=== PATIENT | male | born 1970 | race Caucasian/White ===

== ENCOUNTER 2018-03-31 09:39 | Emergency (ER) | payer OTHER ==
[~2018-03-31] VITALS: Ht 165.1 cm; Wt 92.0 kg
[2018-03-31 09:45] VITALS: TEMP 36.6; Ht 165.1 cm; Wt 92.0 kg
[2018-03-31 10:30] LABS: BASO % 0.3 %; BASO ABS # 0.02 K/uL (0-0.2); EOS % 1.3 %; HEMATOCRIT 45.1 % (42-52); HEMOGLOBIN 16.2 g/dL (14.0-18.0); IG# 0.01 K/uL (0.00-0.02); LYMPH % 38.3 %; LYMPH ABS # 2.96 K/uL (1.2-3.4); MEAN CELL VOLUME 82.1 fL (80-100); MEAN CORPUSCULAR HEMOGLOBIN 29.5 pg (25-34); MEAN CORPUSCULAR HGB CONC 35.9 g/dl (32-36); MEAN PLATELET VOLUME 9.4 fL (7.4-10.4); MONO % 7.6 %; MONO ABS # 0.59 K/uL (0.11-0.59); NEUT % 52.4 %; NEUT ABS # 4.05 K/uL (1.4-6.5); PLATELET COUNT 211 K/uL (130-400); RED CELL DISTRIBUTION WIDTH CV 13.2 % (11.5-14.5); RED CELL DISTRIBUTION WIDTH SD 39.8 fL (36.4-46.3); WHITE BLOOD COUNT 7.73 K/uL (4.8-10.8)
[2018-03-31] MEDS ORDERED: SODIUM CHLORIDE 0.9% 1000ML 1,000 ML IV STA ×2 (10:35→11:21)
[2018-03-31] MEDS ORDERED: MoRPHine SULFATE 4 MG/ML 1 ML CARP\\VIAL IV STA (10:35)
[2018-03-31] MEDS ORDERED: ONDANSETRON INJ 2 MG/ML 2 ML VIAL IV STA (10:35)
[2018-03-31] MEDS ORDERED: KETOROLAC TROMETHAMINE 30 MG/ML VIAL IV STA (10:35)
[2018-03-31] MEDS ORDERED: [UNRECOGNIZED DRUG - OTHER] PO (10:49)
[2018-03-31] MEDS ORDERED: ACET-1256 PO (10:49)
[2018-03-31 11:03] LABS: CALCIUM 8.9 mg/dl (8.5-10.1); CREATININE 1.53 mg/dl (0.60-1.40)
--- NOTE | 2018-03-31 11:06 | DIAGNOSTIC IMAGING REPORT ---
CT SCAN OF THE ABDOMEN AND PELVIS WITHOUT IV CONTRAST CLINICAL HISTORY: Right flank pain. COMPARISON STUDY: No priors. TECHNIQUE: CT scan of the abdomen and pelvis is performed from the lung bases to the proximal femora. Images are reviewed in the axial, sagittal, and coronal planes. IV contrast was not administered for this examination as per the referring clinician. A dose lowering technique was utilized adhering to the principles of ALARA. CT DOSE: 1232.79 mGy.cm FINDINGS: Lung bases: The heart is normal in size and without pericardial effusion. The lung bases are clear. Liver: The unenhanced liver is top normal in size measuring 17 cm in length. The liver demonstrates diffusely diminished attenuation consistent with severe hepatic steatosis. Fatty sparing is seen adjacent to gallbladder fossa. There is no intrahepatic biliary ductal dilatation. Gallbladder: Unremarkable. Spleen: Normal in size and attenuation. Pancreas: Unremarkable. Adrenal glands: Unremarkable. Kidneys: The unenhanced kidneys are normal in size. There is a 5 mm obstructing calculus in the distal right ureter seen on image #358. This is located within 1 cm of the vesicoureteral junction and causes moderate right hydroureteronephrosis. There is associated right-sided perinephric and periureteric stranding. No additional calculi are identified within either kidney. There is no left-sided hydronephrosis. There is no evidence of contour deforming renal mass lesion. Abdominal vasculature: The abdominal aorta is normal in course and caliber. Bowel: The small bowel and colon are normal in course and caliber. The appendix is well-visualized and normal. Peritoneum: There is no intraperitoneal free air or abdominal ascites. There is a small fat-containing umbilical hernia. Lymphadenopathy: None. Pelvic viscera: The bladder, prostate, and seminal vesicles are normal as visualized. There are small bilateral fat-containing inguinal hernias. Skeletal structures: No lytic or blastic lesions are seen. IMPRESSION: 1. There is a 5 mm obstructing calculus in the distal right ureter located just above the vesicoureteral junction. This causes moderate right hydroureteronephrosis. 2. No additional calculi are identified in either kidney. 3. Severe hepatic steatosis. 4. Additional findings as above. Electronically signed by: Surinder Yates M.D. 03/31/2018 11:05 AM Dictated Date/Time: 03/31/2018 11:00 AM
[2018-03-31] MEDS ORDERED: TAMSULOSIN HCL 0.4 MG CAP PO ONE (11:30)
[2018-03-31] MEDS ORDERED: ONDA4TAB10 SL (12:25)
[2018-03-31] MEDS ORDERED: TAMS0.4C38 PO (12:25)
--- NOTE | 2018-03-31 12:36 | EMERGENCY ROOM VISIT NOTE ---
ED Visit Note First contact with patient: 10:12 CHIEF COMPLAINT: Right flank pain 2 weeks HISTORY OF PRESENT ILLNESS: Patient is a 47-year-old male who presents emergency department for evaluation of right flank pain. He has had symptoms for about 2 weeks. He initially noted pain in his right side and right low back. He "self diagnosed" himself with a kidney stone and got an herbal "stoner hand" that he has been taking for about 1 week. He reports that seem to be helping, but once he stopped, the pain returned. Today, he notes a constant, gnawing pain in the right kidney. He states it feels like he is being punched. He rates his discomfort a 7/10. The pain radiates down into his right groin and testicle. He reports associated nausea and vomited once here in the emergency department. He slight burning with urination. He denies any fever, chills, chest pain or shortness of breath. No gross hematuria or penile discharge. He denies having problems similar to this previously. 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 REVIEW OF SYSTEMS: Review of systems as per HPI. All other systems reviewed were negative. 10 systems reviewed. PMH: Electronic medical records are reviewed and summarized as above/below. See Problem List. SOCIAL HISTORY: Patient lives at home with family. Employed. Non-smoker. PHYSICAL EXAM: Vital Signs: Reviewed Nurse's notes. CONSTITUTIONAL: Patient is a pleasant, well-appearing 47-year-old male distress. HEART: Regular rate and rhythm without murmurs, ectopy, gallops, or rubs. LUNGS: Clear to auscultation and breath sounds equal,no wheezes, rales, or rhonchi. ABDOMEN: Bowel sounds are present. Abdomen is soft, obese, nondistended, slightly tender in the mid abdomen, without guarding, rebound or rigidity. Positive CVA tenderness. INTEGUMENTARY: No lesions or rash, normal skin turgor. LYMPH: No lymphadenopathy. EMERGENCY DEPARTMENT COURSE: The patient was seen and evaluated as above. He presents to the emergency department for evaluation of right flank pain 2 weeks. IV lock was initiated. CBC with differential, BMP and urinalysis were drawn. He was given a total of 2 L of normal saline solution, and medicated with Toradol 30 mg and Zofran 4 mg IV. Morphine was ordered, but was held as the patient was feeling better. Laboratory studies revealed a normal white count, H&H is normal. Electrolytes are within normal limits. BUN and creatinine slightly elevated at 19 and 1.53 respectively, no old values for comparison to determine chronicity. Urinalysis notes trace ketones, 3+ occult blood and 10-30 RBCs. No bacteria or other indicators for infection. Given his right flank pain, CT scan of the abdomen and pelvis without contrast was ordered. Findings are consistent with a 5 mm obstructing calculus in the right distal ureter, just above the UVJ. There is resulting moderate right hydroureteronephrosis. No other ureteral or renal calculi are noted. There is some associated right perinephric and periureteral stranding. Patient was made aware of the results of Flomax orally and given a urine strainer. Given the size and the location of the stone, believe that this will pass on its own. He does not have any evidence for superimposed infection at this time. Supportive care measures were discussed. 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 He reports that he has been tolerating pain without. He will be placed on Flomax. He was prescribed Zofran. He can use Tylenol and ibuprofen for discomfort. He was educated on the worrisome signs or symptoms for which she should return to the emergency department. He was referred back to his primary care provider for further care and reassessment, and deferred to urology if his symptoms he is unable to pass the stone. Differential diagnoses entertained included UTI, pyelonephritis, renal colic, hernia, epididymitis/orchitis, testicular torsion, musculoskeletal injury, shingles, appendicitis, biliary colic, among others. Medication reconciliation: I attest that I have personally reviewed the patient' s current medication list. Blood pressure screening: Patient was found to have a slightly elevated blood pressure due to circumstances. I do not believe that the patient requires hypertension monitoring. CT SCAN OF THE ABDOMEN AND PELVIS WITHOUT IV CONTRAST CLINICAL HISTORY: Right flank pain. COMPARISON STUDY: No priors. TECHNIQUE: CT scan of the abdomen and pelvis is performed from the lung bases to the proximal femora. Images are reviewed in the axial, sagittal, and coronal planes. IV contrast was not administered for this examination as per the referring clinician. A dose lowering technique was utilized adhering to the principles of ALARA. CT DOSE: 1232.79 mGy.cm FINDINGS: Lung bases: The heart is normal in size and without pericardial effusion. The lung bases are clear. Liver: The unenhanced liver is top normal in size measuring 17 cm in length. The liver demonstrates diffusely diminished attenuation consistent with severe hepatic steatosis. Fatty sparing is seen adjacent to gallbladder fossa. There is no intrahepatic biliary ductal dilatation. Gallbladder: Unremarkable. Spleen: Normal in size and attenuation. Pancreas: Unremarkable. Adrenal glands: Unremarkable. Kidneys: The unenhanced kidneys are normal in size. There is a 5 mm obstructing calculus in the distal right ureter seen on image #358. This is located within 1 cm of the vesicoureteral junction and causes moderate right hydroureteronephrosis. There is associated right-sided perinephric and periureteric stranding. No additional calculi are identified within either kidney. There is no left-sided hydronephrosis. There is no evidence of contour deforming renal mass lesion. Abdominal vasculature: The abdominal aorta is normal in course and caliber. Bowel: The small bowel and colon are normal in course and caliber. The appendix is well-visualized and normal. Peritoneum: There is no intraperitoneal free air or abdominal ascites. There is a small fat-containing umbilical hernia. Lymphadenopathy: None. Pelvic viscera: The bladder, prostate, and seminal vesicles are normal as visualized. There are small bilateral fat-containing inguinal hernias. Skeletal structures: No lytic or blastic lesions are seen. IMPRESSION: 1. There is a 5 mm obstructing calculus in the distal right ureter located just above the vesicoureteral junction. This causes moderate right hydroureteronephrosis. 2. No additional calculi are identified in either kidney. 3. Severe hepatic steatosis. 4. Additional findings as above. Current/Historical Medications Scheduled Acetaminophen (Tylenol), 1,500 MG PO UD Tamsulosin Hcl (Flomax), 0.4 MG PO DAILY [Elastic As[employer]er], 2 DROP PO UD Scheduled PRN Ondasetron Odt (Zofran Odt), 4 MG SL Q6H PRN for Nausea or Vomiting Allergies Uncoded Allergies: NKDA (Allergy, Unknown, 10/08/02) Vital Signs Date Time Temp Pulse Resp B/P (MAP) Pulse Ox O2 Delivery O2 Flow Rate FiO2 8/6/18 12:44 72 20 122/67 96 03/31/18 11:32 61 20 142/79 97 Room Air 03/31/18 09:45 36.6 83 20 143/87 96 Room Air Laboratory Results 03/31/18 10:15 Red Blood Count 5.49, Mean Corpuscular Volume 82.1, Mean Corpuscular Hemoglobin 29.5, Mean Corpuscular Hemoglobin Concent 35.9, Mean Platelet Volume 9.4, Neutrophils (%) (Auto) 52.4, Lymphocytes (%) (Auto) 38.3, Monocytes (%) (Auto) 7.6, Eosinophils (%) (Auto) 1.3, Basophils (%) (Auto) 0.3, Neutrophils # (Auto) 4.05, Lymphocytes # (Auto) 2.96, Monocytes # (Auto) 0.59, Eosinophils # (Auto) 0.10, Basophils # (Auto) 0.02 03/31/18 10:15 Test 03/31/18 10:05 03/31/18 10:15 Urine Color DK YELLOW Urine Appearance CLEAR (CLEAR) Urine pH 5.0 (4.5-7.5) Urine Specific [place] 1.042 (1.000-1.030) Urine Protein TRACE (NEG) Urine Glucose (UA) NEG (NEG) Urine Ketones TRACE (NEG) Urine Occult Blood 3+ (NEG) Urine Nitrite NEG (NEG) Urine Bilirubin NEG (NEG) Urine Urobilinogen NEG (NEG) Urine Leukocyte Esterase NEG (NEG) Urine WBC (Auto) 1-5 /hpf (0-5) Urine RBC (Auto) 10-30 /hpf (0-4) Urine Hyaline Casts (Auto) 1-5 /lpf (0-5) Urine Epithelial Cells (Auto) 5-10 /lpf (0-5) Urine Bacteria (Auto) NEG (NEG) White Blood Count 7.73 K/uL (4.8-10.8) Red Blood Count 5.49 M/uL (4.7-6.1) Hemoglobin 16.2 g/dL (14.0-18.0) Hematocrit 45.1 % (42-52) Mean Corpuscular Volume 82.1 fL (80-100) Mean Corpuscular Hemoglobin 29.5 pg (25-34) Mean Corpuscular Hemoglobin Concent 35.9 g/dl (32-36) Platelet Count 211 K/uL (130-400) Mean Platelet Volume 9.4 fL (7.4-10.4) Neutrophils (%) (Auto) 52.4 % Lymphocytes (%) (Auto) 38.3 % Monocytes (%) (Auto) 7.6 % Eosinophils (%) (Auto) 1.3 % Basophils (%) (Auto) 0.3 % Neutrophils # (Auto) 4.05 K/uL (1.4-6.5) Lymphocytes # (Auto) 2.96 K/uL (1.2-3.4) Monocytes # (Auto) 0.59 K/uL (0.11-0.59) Eosinophils # (Auto) 0.10 K/uL (0-0.5) Basophils # (Auto) 0.02 K/uL (0-0.2) RDW Standard Deviation 39.8 fL (36.4-46.3) RDW Coefficient of Variation 13.2 % (11.5-14.5) Immature Granulocyte % (Auto) 0.1 % Immature Granulocyte # (Auto) 0.01 K/uL (0.00-0.02) Anion Gap 8.0 mmol/L (3-11) Est Creatinine Clear Calc Drug Dose 63.6 ml/min Estimated GFR () 62.7 Estimated GFR (Non- 54.1 BUN/Creatinine Ratio 12.5 (10-20) Calcium Level 8.9 mg/dl (8.5-10.1) Medications Administered Medications (Trade) Dose Ordered Sig/John Route Start Time Stop Time Status Last Admin Dose Admin Sodium Chloride 1,000 ml @ 999 mls/hr Q1H1M STAT IV 03/31/18 10:35 03/31/18 11:35 DC 03/31/18 10:49 999 MLS/HR Ketorolac Tromethamine (Toradol Inj) 30 mg NOW STAT IV 03/31/18 10:35 03/31/18 10:37 DC 03/31/18 10:50 30 MG Ondansetron HCl (Zofran Inj) 4 mg NOW STAT IV 03/31/18 10:35 03/31/18 10:37 DC 03/31/18 10:49 4 MG Sodium Chloride 1,000 ml @ 999 mls/hr Q1H1M STAT IV 03/31/18 11:21 03/31/18 12:21 DC 03/31/18 11:21 999 MLS/HR Tamsulosin HCl (Flomax Cap) 0.4 mg NOW ONCE PO 03/31/18 11:30 03/31/18 11:31 DC 03/31/18 11:27 0.4 MG Departure Information Impression Primary Impression: Right ureteral calculus Additional Impression: Renal colic on right side Prescriptions Ondasetron Odt (ZOFRAN ODT) 4 Mg Tab 4 MG SL Q6H Y for Nausea or Vomiting, #20 TAB Prov: Megan Couch PA 03/31/18 Tamsulosin Hcl (FLOMAX) 0.4 Mg Cap 0.4 MG PO DAILY, #14 CAP Prov: Megan Couch PA 03/31/18 Referrals Wiliam Robert M.D.([facility]) (PCP) Patient Instructions My [facility] Additional Instructions Flomax 0.4 mg : Take 1 tablet daily until stone passes. Zofran(odansetron) tablets 4mg: Take one and allow it to dissolve in your mouth every four to six hours as needed for nausea or vomiting. Your primary care physician in 1 week for recheck Ibuprofen(Motrin, Advil) may be used for fever or pain. Use 600mg every six hours as needed. Take with food. Avoid using more than 2400mg in a 24 hour period. Do not use 2400mg per day for more than three consecutive days without physician direction. Prolonged inappropriate use can lead to stomach upset or ulcers. This medication can be taken if you need to drive, work, or perform activities which may be dangerous when taking narcotic pain medication. (AND/OR) Acetaminophen(Tylenol) may be used for fever or pain. Use 1000mg every six hours as needed. Avoid using more than 4000mg in a 24 hour period. This medication can be taken if you need to drive, work, or perform activities which may be dangerous when taking narcotic pain medication. Strain your urine and collect all the stones or debris for the urologists. Rest and avoid strenuous activity until your stone passes and symptoms resolve. Drink plenty of fluids. Continue current medications. Return to the ER for worsening abdominal or back pain, vomiting, fevers, passing out, or as needed. Follow up with your primary care physician in 1 week for recheck, and repeat labs to evaluate your kidney function. They can refer you to urology if needed. Problem Qualifiers
[2018-03-31 12:44] VITALS: BP 122/67; PULSE 72; O2SAT 96
== END 2018-03-31 12:45 | disposition home or self-care (01) ==
LOC: C.EDB 09:40 → C.EDC 12:45
DX: N20.0 Calculus of kidney (principal); N23 Unspecified renal colic